=== PATIENT | female | born 1975 | race Two or more races ===

== ENCOUNTER 2025-07-07 11:39 | Emergency (ER) | payer BC, SELFPAY ==
[2025-07-07 11:45] VITALS: BP 187/108
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
== END 2025-07-07 13:37 | disposition home or self-care (01) ==
LOC: EMR 11:39
PROVIDERS: EMERGENCY PHYSICIAN Emergency Medicine; FAMILY PHYSICIAN Internal Medicine
DX: F43.20 Adjustment disorder, unspecified (principal)
CPT/HCPCS: 99282